=== PATIENT | male | born 1990 | race Caucasian/White ===

== ENCOUNTER 2017-10-15 15:04 | Emergency (ER) | payer MEDICAID ==
[~2017-10-15] VITALS: Ht 170.2 cm; Wt 81.6 kg
[2017-10-15 15:04] VITALS: BP 116/69
[2017-10-15] MEDS ORDERED: TRAMADOL HCL 50 MG TABLET ONE (15:50)
[2017-10-15] MEDS ORDERED: TRAMADOL HCL 50 MG TABLET PO ONE (16:00)
== END 2017-10-15 15:55 | disposition home or self-care (01) ==
LOC: ER 15:10
DX: G89.29 Other chronic pain (principal); M54.5 Low back pain
CPT/HCPCS: 99282; A4606; Z7610

== ENCOUNTER 2017-12-15 02:44 | Emergency (ER) | payer MEDICAID ==
[~2017-12-15] VITALS: Ht 185.4 cm; Wt 86.2 kg
[2017-12-15 02:58] VITALS: BP 139/74
--- NOTE | 2017-12-15 03:00 | NUR ---
DR RANDHAWA AT BEDSIDE TO EVALUATE PATIENT.
== END 2017-12-15 03:08 | disposition home or self-care (01) ==
LOC: ER 02:46
DX: Z00.8 Encounter for other general examination (principal)
CPT/HCPCS: 99281; A4606; Z7610; Z7502